=== PATIENT | female | born 1940 | race Caucasian/White ===

== ENCOUNTER → 2016-07-11 | Outpatient (CLI) | payer MEDICARE, BC ==
[~2016-07-11] MED LIST: ASPIRIN 81M81 MG/TA2 PO; CIPRO 500MG TA500 MG PO; GLUCOSAMINE & C1 CA1 PO; LORTAB 5/500 501 TAB PO; MULTI VITAMINS1 TAB PO; NO HOME MEDICATIONS; PEPCID 20MG TAB20 MG PO; RITE AID TURME500 MG PO; ZOFRAN 4MG T4 MG/TAB PO
== END ==
LOC: COL.VAS 11:09
DX: R94.39 Abnormal result of other cardiovascular function study (principal); R01.1 Cardiac murmur, unspecified